=== PATIENT | female | born 1970 | race African-American/Black ===

== ENCOUNTER 2017-05-01 07:34 | Emergency (ER) | payer SELFPAY ==
[2017-05-01 07:47] VITALS: BP 145/95; BMI 33.5
--- NOTE | 2017-05-01 07:57 | DR.EXTPAIN ---
HPI - Time seen Time seen: 07:45 - PCP Primary Care Physician: BENJAMIN CADENA - Complaint/Symptoms Chief Complaint:: RIGHT ABD PAIN Self Treatment fo Chief Complaint: [employer] - Nurses notes reviewed Nurses Notes Review: Yes - Source History Provided: Patient - Mode of arrival Mode of Arrival: Ambulatory - Timing Onset of Chief Complaint: 04/30/17 - Context History of: None - Associated signs and symptoms Associated Signs and Symptoms: Pain <BONI DUVAL - Last Filed: 05/01/17 08:15> - HPI Comment HPI Comment: Patient states that she had an acute onset of right abdominal pain today enroute to work. Denies vomiting or diarrhea or fever.. Pain is severe, not aggravated by motion, sharp. - Associated signs and symptoms Associated Signs and Symptoms: Diplopia <DI DOUGLAS - Last Filed: 05/01/17 09:32> PMH - PMH Past Medical History: Yes Past Medical History: Hypertension Past Surgical History: No - Family History History of Family Medical Conditions: Yes Family Medical History: Cancer - Social History Does patient currently use any type of tobacco product: No Have you used tobacco products in the last 12 months: No Type of Tobacco Use: None Does any household member use tobacco: No Alcohol Use: None Do you use any recreational Drugs:: No Lives With: Significant Other Lives Where: Home - infectious screening In the last 2 months have you had wt loss of >10#?: NO Have you had fever, night sweats or hemotysis?: No Have you traveled outside the country in the last 6 months?: No Isolation: Standard <BONI DUVAL - Last Filed: 05/01/17 08:15> ROS - Review of Systems Constitutional: No Symptoms Reported Eyes: No Symptoms Reported ENTM: No Symptoms Reported Respiratoy: No Symptoms Reported Cardiovascular: No Symptoms Reported Gastrointestinal/Abdominal: Abdominal Pain, Nausea Genitourinary: No Symptoms Reported Neurological: No Symptoms Reported Musculoskeletal: No Symptoms Reported Integumentary: No Symptoms Reported Hematologic/Lymphatic: No Symptoms Reported Endocrine: No Symptoms Reported Psychiatric: No Symptoms Reported All Other Systems: Reviewed and Negative <BONI DUVAL - Last Filed: 05/01/17 08:15> PE - General Limitations: No Limitations General Appearance: Alert, In No Apparent Distress - Head Head Exam: Normal Inspection - Eyes Eye exam: Normal Appearance, EOMI. negative: Scleral Icterus, Conjunctival Injection - ENT ENT Exam: Normal Exam, Normal Oropharynx - Neck Neck Exam: Normal Inspection, Full ROM - Chest Chest Inspection: Normal Inspection - Respiratory Respiratory Exam: Normal Lung Sounds Bilat. negative: Accessory Muscle Use, Respiratory Distress Respiratory Exam: Bilateral Clear to Auscultation - Cardiovascular Cardiovascular Exam: Regular Rate, Normal Rhythm - Abdominal Exam Abdominal Exam: Normal Inspection, Normal Bowel Sounds, Soft, Tenderness. negative: Distention, Guarding Abdominal Tenderness: Epigastrium - Extremities Extremities Exam: Normal Inspection - Upper Extremities Shoulder Exam: Normal Inspection Elbow Exam: Normal Inspection Forearm Exam: Normal Inspection Neuromotor Exam: Normal Exam Neurosensory Exam: Normal Exam Hand Tendon Exam: Flexor Digitorium Profundus (Location) - Lower Extremities Hip/Pelvis Exam: Normal Inspection Knee Exam: Normal Inspection Lower Leg Exam: Normal Inspection Ankle Exam: Normal Inspection - Back Back Exam: Normal Inspection, Full ROM - Neurological Neurological Exam: Alert, Oriented X3, CN II-XII Intact - Psychiatric Psychiatric Exam: Normal Mood - Skin Skin Exam: Intact, Normal Color <BONI DUVAL - Last Filed: 05/01/17 08:15> - General General Appearance: Alert, Anxious - Respiratory Respiratory Exam: Bilateral Clear to Auscultation - Lower Extremities Neurovascular/Tendon Exam: Normal Capillary Refill - Skin Type of Lesion: negative: Rash <DI DOUGLAS - Last Filed: 05/01/17 09:32> - Vital Signs Vitals: Temperature 97.7 F Pulse Rate 91 Respiratory Rate 20 Blood Pressure 145/95 O2 Sat by Pulse Oximetry 97 (BONI DUVAL) (DI DOUGLAS) Course - Reevaluation 1st: Improved <DI DOUGLAS - Last Filed: 05/01/17 09:32> ROR - Labs Reviewed Laboratory Results Reviewed?: Yes (low potassium. H pylori positive) Result Diagrams: 05/01/17 08:20 05/01/17 08:20 - XRAY XRAY Interpreted by: Radiologist (Lumbar: negative exam) <DI DOUGLAS - Last Filed: 05/01/17 09:32> - Labs Reviewed Laboratory: WBC 8.3 X10^3/uL (3.6-10.0) 05/01/17 08:20 RBC 4.30 X10^6/uL (3.5-5.4) 05/01/17 08:20 Hgb 12.5 g/dL (12.0-16.0) 05/01/17 08:20 Hct 36.9 % (36.0-47.0) 05/01/17 08:20 MCV 85.8 fL (80.0-100.0) 05/01/17 08:20 MCH 29.2 pg (27.0-34.0) 05/01/17 08:20 MCHC 34.0 g/dL (33.0-35.0) 05/01/17 08:20 RDW 13.2 % (11.6-16.5) 05/01/17 08:20 Plt Count 268 X10^3/uL (150.0-450.0) 05/01/17 08:20 MPV 8.4 fL (7.4-11.0) 05/01/17 08:20 Neut % 68.7 % (42.0-75.0) 05/01/17 08:20 Lymph % 22.0 % (21.0-51.0) 05/01/17 08:20 [place] % 8.1 % (0.0-13.0) 05/01/17 08:20 Eos % 0.9 % (0.9-2.9) 05/01/17 08:20 Baso % 0.3 % (0.2-1.0) 05/01/17 08:20 Neut # 5.7 x10^3/uL (2.2-4.8) H 05/01/17 08:20 Lymph # 1.8 X10^3/uL (1.3-2.9) 05/01/17 08:20 [place] # 0.7 x10^3/uL (0.3-0.8) 05/01/17 08:20 Eos # 0.1 x10^3/uL (0.0-0.2) 05/01/17 08:20 Baso # 0.0 X10^3/uL (0.0-0.1) 05/01/17 08:20 Absolute Nucleated RBC 0.0 /100WBC 05/01/17 08:20 Sodium 139 mmol/L (136-145) 05/01/17 08:20 Corrected Sodium 140 mmol/L (136-145) 05/01/17 08:20 Potassium 3.2 mmol/L (3.5-5.1) L 05/01/17 08:20 Chloride 103 mmol/L (98-107) 05/01/17 08:20 Carbon Dioxide 25.8 mmol/L (21-32) 05/01/17 08:20 BUN 9 mg/dL (7-18) 05/01/17 08:20 Creatinine 0.89 mg/dL (0.55-1.02) 05/01/17 08:20 Est GFR (MDRD) Af Amer > 60 (>60) 05/01/17 08:20 Est GFR (MDRD) Non-Af > 60 (>60) 05/01/17 08:20 Glucose 148 mg/dL (65-99) H 05/01/17 08:20 Calcium 8.5 mg/dL (8.5-10.1) 05/01/17 08:20 Corrected Calcium TNP 05/01/17 08:20 Total Bilirubin 0.30 mg/dL (0.2-1.0) 05/01/17 08:20 AST 20 Units/L (15-37) 05/01/17 08:20 ALT 28 Units/L (12-78) 05/01/17 08:20 Alkaline Phosphatase 81 Units/L (46-116) 05/01/17 08:20 Total Protein 8.2 g/dL (6.4-8.2) 05/01/17 08:20 Albumin 3.7 g/dL (3.4-5.0) 05/01/17 08:20 Globulin 4.5 g/dL (2.5-4.5) 05/01/17 08:20 Albumin/Globulin Ratio 0.8 Ratio (1.1-2.1) L 05/01/17 08:20 Amylase 55 Units/L (25-115) 05/01/17 08:20 Lipase 98 Units/L (73-393) 05/01/17 08:20 HCG, Qual Negative <10 mIU/mL 05/01/17 08:20 Specimen Type Clean catch urine 05/01/17 08:07 Urine Color Pale yellow (YELLOW) 05/01/17 08:07 Urine Appearance Clear (CLEAR) 05/01/17 08:07 Urine pH 6.0 (5.0 - 8.0) 05/01/17 08:07 Ur Specific [place] 1.015 (1.000-1.030) 05/01/17 08:07 Urine Protein Negative (NEGATIVE) 05/01/17 08:07 Urine Glucose (UA) 3+ (NEGATIVE) 05/01/17 08:07 Urine Ketones Negative (NEGATIVE) 05/01/17 08:07 Urine Occult Blood 2+ (NEGATIVE) 05/01/17 08:07 Urine Nitrite Negative (NEGATIVE) 05/01/17 08:07 Urine Bilirubin Negative (NEGATIVE) 05/01/17 08:07 Urine Urobilinogen Normal (NORMAL) 05/01/17 08:07 Ur Leukocyte Esterase Negative (NEGATIVE) 05/01/17 08:07 Urine RBC Rare /HPF (NEGATIVE) 05/01/17 08:07 Urine WBC None seen /HPF (NEGATIVE) 05/01/17 08:07 Ur Squamous Epith Cells Few /HPF (NEGATIVE) 05/01/17 08:07 Amorphous Sediment Trace /HPF (NEGATIVE) 05/01/17 08:07 Urine Bacteria Negative /HPF (NEGATIVE) 05/01/17 08:07 Ur Culture Indicated? No/not indicated 05/01/17 08:07 H. pylori IgG Antibody Positive (NEGATIVE) A 05/01/17 08:20 <BONI DUVAL - Last Filed: 05/01/17 08:15> <DI DOUGLAS - Last Filed: 05/01/17 09:32> - Diagnosis Discharge Problem: Helicobacter pylori gastritis - Discharge Plan Condition: Stable - Follow ups/Referrals Follow ups/Referrals: PRAVEENA CADENA [Primary Care Provider] - 3 days - Instructions
[2017-05-01 08:25] LABS: BILIRUBIN,URINE NEGATIVE (NEGATIVE); BLOOD/HEMOGLOBIN,URINE 2+ (NEGATIVE); GLUCOSE, URINE 3+ (NEGATIVE); KETONES,URINE NEGATIVE (NEGATIVE); LEUKOCYTE ESTERASE ,URINE NEGATIVE (NEGATIVE); NITRITES,URINE NEGATIVE (NEGATIVE); PROTEIN,URINE NEGATIVE (NEGATIVE); UROBILINOGEN,URINE NORMAL (NORMAL)
[2017-05-01] MEDS ORDERED: TORADOL 30 MG VIAL IVP ONE (08:30)
[2017-05-01 08:31] LABS: BASOPHILS % (AUTO) 0.3 % (0.2-1.0); EOSINOPHILS # (AUTO) 0.1 x10^3/uL (0.0-0.2); EOSINOPHILS % (AUTO) 0.9 % (0.9-2.9); HEMATOCRIT 36.9 % (36.0-47.0); HEMOGLOBIN 12.5 g/dL (12.0-16.0); LYMPHOCYTES # (AUTO) 1.8 X10^3/uL (1.3-2.9); MEAN CORPUSCULAR HEMOGLOBIN 29.2 pg (27.0-34.0); MEAN CORPUSCULAR VOLUME 85.8 fL (80.0-100.0); MEAN PLATELET VOLUME 8.4 fL (7.4-11.0); MONOCYTES # (AUTO) 0.7 x10^3/uL (0.3-0.8); MONOCYTES % (AUTO) 8.1 % (0.0-13.0); NEUTROPHILS # (AUTO) 5.7 x10^3/uL (2.2-4.8); NEUTROPHILS % (AUTO) 68.7 % (42.0-75.0); PLATELET COUNT 268 X10^3/uL (150.0-450.0); RED CELL DISTRIBUTION WIDTH 13.2 % (11.6-16.5); WHITE BLOOD COUNT 8.3 X10^3/uL (3.6-10.0)
[2017-05-01] MEDS ORDERED: TORADOL 30 MG VIAL ONE (08:31)
[2017-05-01 08:37] LABS: AMORPHOUS SEDIMENT,UR TRACE /HPF (NEGATIVE); APPEARANCE,URINE CLEAR (CLEAR); BACTERIA,URINE NEGATIVE /HPF (NEGATIVE); COLOR,URINE PALE YELLOW (YELLOW); RBC,URINE RARE /HPF (NEGATIVE); SQUAMOUS EPITHELIAL CELL,UR FEW /HPF (NEGATIVE)
[2017-05-01 08:49] LABS: SERUM PREGNANCY TEST, QUAL NEGATIVE <10 mIU/mL
[2017-05-01 08:51] LABS: ALANINE AMINOTRANSFERASE 28 Units/L (12-78); ALBUMIN 3.7 g/dL (3.4-5.0); ALKALINE PHOSPHATASE 81 Units/L (46-116); AMYLASE 55 Units/L (25-115); ASPARTATE AMINO TRANSFERASE 20 Units/L (15-37); BLOOD UREA NITROGEN 9 mg/dL (7-18); CALCIUM 8.5 mg/dL (8.5-10.1); CARBON DIOXIDE 25.8 mmol/L (21-32); CHLORIDE 103 mmol/L (98-107); COR NA(FOR HYPERGLY) 140 mmol/L (136-145); CREATININE 0.89 mg/dL (0.55-1.02); GLUCOSE 148 mg/dL (65-99); LIPASE 98 Units/L (73-393); SODIUM 139 mmol/L (136-145); TOTAL PROTEIN 8.2 g/dL (6.4-8.2); eGFR BLACK RACES > 60 (>60); eGFR NON BLACK RACES > 60 (>60)
[2017-05-01] MEDS ORDERED: K-LYTE EFFERVESCENT PO ONE (09:02)
[2017-05-01] MEDS ORDERED: NS 1000 ML 1,000 ML IV ONE (09:05)
[2017-05-01] MEDS ORDERED: NS 1000 ML 1,000 ML ONE (09:15)
--- NOTE | 2017-05-01 10:32 | RAD ---
HISTORY: Right-sided abdominal pain Study: Acute abdominal series Comparison: None Findings: The trachea is midline. The cardiac silhouette is unremarkable. The lungs are clear without focal infiltrate or effusion. The bony thorax is unremarkable. Flat plate and upright evaluation of the abdomen demonstrates a normal bowel gas pattern. No pneumop eritoneum is identified.. No pathological soft tissue mass can be observed. There is a calcifica tion just to the right of the sacrum . A ureteral calculus could not be excluded. The bony structure s are grossly intact. IMPRESSION: 1. No acute cardiopulmonary disease. 2. Calcification just to the right of the distal sacrum possibly representing a right ureteral calc ulus. Clinical correlation should determine the need for stone protocol CT. Reported By:
== END 2017-05-01 10:00 | disposition home or self-care (01) ==
LOC: ER 07:43
DX: R10.13 Epigastric pain (principal); B96.81 Helicobacter pylori [H. pylori] as the cause of diseases classified elsewhere
CPT/HCPCS: 36415; 74022; 80053; 81001; 82150; 83690; 84703; 85025; 86677; 96365; 96374; 99283; A4216; A4222; J1885